=== PATIENT | female | born 1990 | race Hispanic/Latino ===

== ENCOUNTER 2023-08-20 19:06 | Emergency (ER) | payer SELFPAY ==
[2023-08-20 19:09] VITALS: BP 118/86; PULSE 98; RESP 18; TEMP 35.7; O2SAT 100
--- NOTE | 2023-08-20 19:31 | US_ITS ---
STUDY: ABDOMINAL ULTRASOUND - RIGHT UPPER QUADRANT REASON FOR VISIT: Female, 33 years old PAIN TECHNIQUE: Ultrasound evaluation of the right upper quadrant was performed with real-time and static webster-scale imaging. TECHNICAL QUALITY: Limited. Examination limited by bowel gas. COMPARISON: None. FINDINGS: Liver: The liver measures 15.7 cm. There is normal echogenicity of the liver. The bile ducts are within normal limits. There is hepatic color flow. The direction of portal flow is hepatopetal. There is no demonstrated mass lesion. Gallbladder: Normal distended gallbladder. The gallbladder wall measures 1.7 mm. There is a negative sonographic Anguiano''s sign. There is no pericholecystic fluid. There are multiple echogenic structures within the gallbladder, consistent with multiple gallstones. Common Bile Duct (C.B.D.): The common bile duct measures 3.7 mm. Pancreas: Normal size of the head, body with obscuration of the tail of the pancreas. There is normal echogenicity of the visualized pancreas. There is no demonstrated pancreatic mass or cyst in the visualized portion. Right Kidney: Normal size of the right kidney. The right kidney measures 11.5 x 6.0 x 4.9 cm. Normal renal cortex. The right cortex measures 1.0 cm. There is no demonstrated renal mass or cyst. There is no right hydronephrosis. US/Gallbladder IMPRESSION: Multiple gallstones with no signs of acute cholecystitis. Remainder of the right upper quadrant ultrasound unremarkable. Electronically Signed: Cristy Moon MD at 21:09 [facility] ,
[2023-08-20] MEDS: Morphine 4 MG/ML Syringe IV (19:42)
[2023-08-20] MEDS: 0.9% Normal Saline (1000mL) 1,000 ML 125 ML IV (19:42)
[2023-08-20] MEDS: Ondansetron 4 MG/2 ML Vial IV (19:42)
[2023-08-20 19:51] LABS: Absolute Lymphocyte Count 2.19 X10^3/uL (0.83-4.51); Absolute Neutrophil Count 4.7 X10^3/uL (2.0-7.7); Basophil# 0.08 X10^3/uL; Eosinophil# 0.37 X10^3/uL; Eosinophils% 4.7 % (0-5); Hematocrit 37.9 % (37-47); Hemoglobin 12.5 g/dL (12.0-15.0); Lymphocyte # 2.19 X10^3/ul (0.83-4.51); Lymphocyte % 27.8 % (19-41); Mean Corpuscular Hgb 28.3 pg (27.0-32.0); Mean Corpuscular Volume 85.7 fL (81-99); Mean Platelet Vol. 9.9 fl (6.2-12.0); Monocyte# 0.52 X10^3/uL; Monocyte% 6.6 % (0-10); NRBC Flagged by Analyzer 0 % (0-5); Neutrophil % 59.8 % (47-70); Platelet Count 350 K/mm3 (150-450); RBC Distribution Width CV 12.7 % (11.6-14.6); RBC Distribution Width SD 39.8 fl (35.1-43.9); Red Blood Count 4.42 M/mm3 (4.2-5.4); White Blood Count 7.9 K/mm3 (4.4-11.0)
[2023-08-20 20:08] LABS: AST(SGOT) 17 U/L (15-37); Alanine Aminotransfer ALT/SGPT 22 U/L (13-56); Albumin, Serum 3.8 g/dL (3.2-5.0); Alkaline Phosphatase 128 U/L (45-117); Anion Gap 2 (5-15); BUN 11 mg/dL (7-18); BUN/Creat Ratio 20.7 RATIO (10-20); Bilirubin, Direct 0.08 mg/dL (0.00-0.30); Calcium,Total 9.8 mg/dL (8.5-10.1); Chloride 108 mmol/L (98-107); Creatinine, Serum 0.53 mg/dL (0.55-1.02); EST Glomerular Filtration Rate 142 mL/min (>60); Est Glom Filt Rate - Afr Amer 172 mL/min (>60); Glucose 105 mg/dL (74-106); Lipase 37 U/L (13-75); Potassium 3.7 mmol/L (3.5-5.1); Protein, Total 7.8 g/dL (6.4-8.2); Sodium Level 138 mmol/L (136-145)
[2023-08-20 20:21] LABS: Internal QC Validated? YES +Cl - CLEAR BKGD; Pregnancy, Serum, hCG Quali. NEGATIVE Negative
[2023-08-20 20:45] LABS: Bacteria 0 SEEN /hpf (None Seen); Mucous, Urine 0 SEEN /hpf (<or=2+)
[2023-08-20 20:54] LABS: Color, Urine Yellow (Yellow); Glucose, Dipstick Normal (Normal); Ketone-Dipstick Negative (Negative); Leukocyte Esterase-Dipstick Negative /ul (Negative); Nitrite-Dipstick Negative (Negative); Occult Blood-Urine 10 /ul (Negative); Protein-Dipstick Negative (Negative); Urine Bilirubin Dipstick Negative (Negative); Urine Clarity Clear (Clear); Urine Urobilinogen Normal (Normal); Urine pH 6.5 (5.0 - 8.0)
[2023-08-20 21:08] LABS: Red Blood Cells-Urine 0-5 SEEN /hpf (0-5); Squamous Epithelial Cells - UA 0-5 SEEN /hpf (5-10); White Blood Cells 0-5 SEEN /hpf (0-5)
[2023-08-20 21:53] VITALS: BP 139/76; PULSE 82; RESP 15; O2SAT 96
--- NOTE | 2023-08-20 22:26 | ED.VIS.GI ---
HPI HPI - GI History of Present Illness Chief Complaint: Abd Pain Informant: patient Narrative Narrative: 33-year-old female presenting to the emergency room with right upper quadrant abdominal pain. 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 Patient tells me that she has had recurrent right upper quadrant pain. She first had an episode about 2 months ago that resolved. 2 weeks ago she had another episode. Today around 2:00 she ate lunch and around 5:00 began to experiencing pain and nausea. She states the pain does not radiate. It is made worse with movement and deep breathing. She does not feel it in her back. She denies any bowel or urinary symptoms. She notes she has had a clavicle surgery and what sounds like a section. PFSH PFSH Home Medications hydrocodone-acetaminophen 5-325mg 5mg-325mg 1 tab PO Q6H PRN PRN Pain 3 days #12 TABLETS 08/20/23 [Rx Last Taken Unknown] ondansetron 4 mg disintegrating tablet 4 mg PO Q6H PRN PRN Nausea #10 tabs 08/20/23 [Rx Last Taken Unknown] Allergy/AdvReac Type Severity Reaction Status Date / Time No Known Allergies Allergy Verified 08/20/23 19:06 Surgical History Previous section Social History Smoking Status: Never smoker EXAM Physical Exam Const Vital Signs: 08/20/23 19:09 08/20/23 21:53 Temperature 96.2 F L Temperature Source Temporal Pulse Rate 98 82 Respiratory Rate 18 15 Blood Pressure 118/86 H 139/76 H Blood Pressure Mean 96 97 Pulse Ox 100 96 Oxygen Delivery Method Room Air Room Air Positive well nourished and well developed General Appearance ED: well developed HEENT Reports normocephalic, head/scalp atraumatic and moist mucous membranes Eyes PERRL and EOMs intact bilaterally Neck no lymphadenopathy, supple and no JVD Resp normal respiratory effort and clear to auscultation bilaterally Cardio regular rate, regular rhythm and no murmurs GI non-tender Inspection: Negative for abdominal distention Auscultation: normoactive bowel sounds Palpation: soft, tender RUQ and guarding; Negative for rebound tenderness present Back/Spine no CVA tenderness and normal ROM Extremity normal to inspection General Extremety ED: Negative for edema General Extremity: Negative for edema Neuro oriented x3 and CN's II-XII intact bilaterally Sensorium / Orientation: alert Motor Exam: strength 5/5 throughout Psych mental status grossly normal Mood & Affect: Negative for depressed or tearful Skin no rashes or lesions noted and no wounds MDM MDM MDM Narrative Medical decision making narrative: I performed a bedside ultrasound which demonstrates some cholelithiasis. White count 7.9 with no left shift. Liver enzymes showed an alkaline phosphatase of 128 otherwise normal. Creatinine 0.53. Anion gap of 2 CO2 of 28 lipase 37 test is negative urinalysis negative. Formal gallbladder ultrasound shows biliary sludge and gallstones. No pericholecystic fluid. No CBD dilatation. Patient received morphine for pain which improved it. I gave her some additional Toradol. I did speak with Dr. Flanagan from general surgery who at this point would recommend outpatient follow-up to discuss cholecystectomy. She was placed on a low-fat diet given pain and nausea medications and given return instructions in Beninese. History & Record Review Discussion w/independent historian: Patient Lab Data Attestation: I reviewed the patient's lab results. Labs: Laboratory Results - last 24 hr 08/20/23 08/20/23 19:46 20:40 WBC 7.9 RBC 4.42 Hgb 12.5 Hct 37.9 MCV 85.7 MCH 28.3 MCHC 33.0 RDW Std Deviation 39.8 RDW Coeff of Wilfrid 12.7 Plt Count 350 MPV 9.9 Immature Gran % (Auto) 0.100 Neut % (Auto) 59.8 Lymph % (Auto) 27.8 [place] % (Auto) 6.6 Eos % (Auto) 4.7 Baso % (Auto) 1.0 Absolute Neuts (auto) 4.7 Absolute Lymphs (auto) 2.19 Nucleated RBC % 0 Sodium 138 Potassium 3.7 Chloride 108 H Carbon Dioxide 28.0 Anion Gap 2 L BUN 11 Creatinine 0.53 L Est GFR (MDRD) Af Amer 172 Est GFR (MDRD) Non-Af 142 BUN/Creatinine Ratio 20.7 H Glucose 105 Calcium 9.8 Total Bilirubin 0.30 Direct Bilirubin 0.08 AST 17 ALT 22 Alkaline Phosphatase 128 H Total Protein 7.8 Albumin 3.8 Globulin 4.0 Lipase 37 Serum , Qual NEGATIVE Urine Color Yellow Urine Clarity Clear Urine pH 6.5 Ur Specific [place] 1.020 Urine Protein Negative Urine Glucose (UA) Normal Urine Ketones Negative Urine Occult Blood 10 H Urine Nitrite Negative Urine Bilirubin Negative Urine Urobilinogen Normal Ur Leukocyte Esterase Negative Urine RBC 0-5 SEEN Urine WBC 0-5 SEEN Ur Squamous Epith Cells 0-5 SEEN Urine Bacteria 0 SEEN Urine Mucus 0 SEEN Radiography Diagnostic Testing: Clinical Impression(s) from Imaging Studies Gallbladder Ultrasound 08/20/23 19:31 IMPRESSION: Multiple gallstones with no signs of acute cholecystitis. Remainder of the right upper quadrant ultrasound unremarkable. Electronically Signed: Cristy Moon MD at 21:09 EST , Management Discussion w/another healthcare provider: [employer] [employer] (Surgery) Discharge Plan Triage Chief Complaint: Abd Pain ED Provider: Michi Mott Dx/Rx/DC Orders Clinical Impression: Gallstones, Biliary colic Instructions: Gallstones Dc, ED Gallstones with Biliary Colic Prescriptions: New hydrocodone-acetaminophen [hydrocodone-acetaminophen] 5-325 mg tablet 1 tab PO Q6H PRN PRN (Reason: Pain) 3 Days Qty: 12 0RF ondansetron [ondansetron] 4 mg tablet,disintegrating 4 mg PO Q6H PRN PRN (Reason: Nausea) Qty: 10 0RF Primary Care Provider: Care Physician,No Primary Referrals: Fred Flanagan MD [Med Staff - Active Staff] - As soon as possible (for surgical evaluation) Care Physician,No Primary [Primary Care Provider] - Activity Restrictions/Additional Instructions: As discussed it is very likely that your pain will be coming back at some point. It is very important that you follow-up with surgery to discuss having your gallbladder removed. I have wrote for you to have some pain and nausea medications. If you are having uncontrolled symptoms at home please return to emergency. Print Language: Beninese Disposition Disposition: Home, Self Care
[2023-08-20] MEDS: Ketorolac 30 MG/ML Syringe IV (22:35)
[2023-08-20 22:37] VITALS: BP 128/67; PULSE 85; RESP 17; O2SAT 99
[2023-08-20 22:39] VITALS: BMI 26.4
== END 2023-08-20 23:00 | disposition home or self-care (01) ==
PROVIDERS: Emergency Provider Emergency Medicine; Visit Provider Emergency Medicine
DX: K80.70 Calculus of gallbladder and bile duct without cholecystitis without obstruction (principal)
CPT/HCPCS: 76705; 80048; 80076; 81001; 83690; 84703; 85025; 96361; 96374; 96375; 99283; J7030; A4216; J2405

== ENCOUNTER 2025-01-31 03:41 | Emergency (ER) | payer SELFPAY ==
[2025-01-31 03:43] VITALS: BP 126/74; PULSE 94; RESP 18; TEMP 36.9; O2SAT 98; BMI 25.9
[2025-01-31 04:08] LABS: Hematocrit 38.7 % (37-47); Hemoglobin 13.1 g/dL (12.0-15.0); Immature Granulocytes Count 0.040 X10^3/uL (0.0-0.0); Mean Corp Hgb Conc 33.9 g/dL (32-36); Mean Corpuscular Volume 83.6 fL (81-99); Mean Platelet Vol. 9.5 fl (6.2-12.0); NRBC Flagged by Analyzer 0 % (0-5); Platelet Count 341 K/mm3 (150-450); RBC Distribution Width CV 13.0 % (11.6-14.6); RBC Distribution Width SD 39.6 fl (35.1-43.9); Red Blood Count 4.63 M/mm3 (4.2-5.4); White Blood Count 11.4 K/mm3 (4.4-11.0)
[2025-01-31] MEDS: 0.9% Normal Saline (1000mL) 1,000 ML 999 ML IV (04:15)
[2025-01-31 04:17] LABS: Internal QC Validated? YES +Cl - CLEAR BKGD; Pregnancy, Serum, hCG Quali. NEGATIVE Negative; Record Kit Lot#, Serum Preg. 0000947241
[2025-01-31 04:25] LABS: AST(SGOT) 23 U/L (<=31); Alanine Aminotransfer ALT/SGPT 16 U/L (<=34); Albumin, Serum 4.6 g/dL (3.5-5.0); Alkaline Phosphatase 97 U/L (35-104); Anion Gap 12 (5-15); BUN 7 mg/dL (4-19); BUN/Creat Ratio 13.3 RATIO (10-20); Bilirubin, Direct 0.28 mg/dL (0.00-0.30); Calcium,Total 9.4 mg/dL (7.6-11.0); Carbon Dioxide 19.9 mmol/L (21.0-32.0); Chloride 102 mmol/L (98-108); Estimated Creatinine Clearance 151.54 ml/min (50-250); Globulin 3.6 g/dL (2.2-4.2); Glucose 110 mg/dL (70-99); Lipase 25 U/L (13-75); Potassium 4.1 mmol/L (3.3-5.1)
[2025-01-31 04:26] LABS: Color, Urine Yellow (Yellow); Glucose, Dipstick Normal (Normal); Ketone-Dipstick Negative (Negative); Leukocyte Esterase-Dipstick 25 /ul (Negative); Nitrite-Dipstick Negative (Negative); Occult Blood-Urine 25 /ul (Negative); Protein-Dipstick 30 mg/dl (Negative); Specific Gravity, Urine 1.015 (1.002-1.030); Urine Bilirubin Dipstick Negative (Negative)
--- NOTE | 2025-01-31 04:29 | CT_ITS ---
PROCEDURE: ABDOMEN/PELVIS W IV CONT ONLY 01/31/2025 REASON FOR EXAM: ABD PAIN TECHNIQUE: ABDOMEN/PELVIS W IV CONT ONLY Coronal and Sagittal reconstruction series were provided. CONTRAST: VOLUME: mL One or more dose reduction techniques were used (e.g., Automated exposure control, adjustment of the mA and/or kV according to patient size, use of iterative reconstruction technique. RADIATION DOSE SUMMARY: CTDlvol: mGy DLP: mGycm COMPARISON: none FINDINGS: Average sized liver showing homogenous parenchymal attenuation with fatty changes and segment IV pseudo-lesion. No dilated intra or extra-hepatic biliary tracts. Cholecystectomy clips Normal appearance of the pancreas with clear surrounding fat planes. The spleen, adrenal glands, aorta and IVC are unremarkable. Both kidneys are of average size and showing smooth outline with preserved parenchymal thickness. No renal calculi. No hydronephrosis. Under distension of the urinary bladder showing uniform mural thickening with no obvious masses. No obvious masses related to the pelvic viscera. The appendix is not identified. Colonic fecal loading. The small bowel loops are unremarkable. Unremarkable appendix. Mild gastric wall thickening, possibly under distension. No ascites or free air. No obvious pathologically enlarged lymph nodes. Scanned osseous structures show no osseous destruction. Scanned lung bases show no obvious abnormalities. CT/Abdomen/Pelvis W IV Cont ONLY IMPRESSION: Urinary bladder mural thickening. Advise clinical and laboratory correlation to exclude the possibility of cystitis. Otherwise, no acute pelvi-abdominal abnormalities, collections or free air. Reading [facility]
[2025-01-31 04:33] LABS: Red Blood Cells-Urine 0-5 SEEN /hpf (0-5); Squamous Epithelial Cells - UA 5-10 SEEN /hpf (5-10); Transitional Epithelial - Ur 0-5 SEEN /hpf (0-5)
[2025-01-31 04:34] LABS: Mucous, Urine 1+ /hpf (<or=2+)
--- OUTSIDE RECORDS SUMMARY | 2025-01-31 05:14 | XMS RPT_ITS | CCD ---
Author Organization [facility] Care Team Providers Care Precision Agriculture Technician Name Role Phone Michi Mott Attending [facility] Care Physician, No Primary Primary Care Unava ilable Medications Current Medications Medication Drug Class(es) Dates Sig (Normalized) Sig (Original) acetaminophen 325 mg / HYDROcodone bitartrate 5 mg oral tablet (1 source) Opioid Agonist Start: 08-20-2023 take 1 tablet by mouth every six hours as needed Hydrocodone-Aceta minophen Active 1 TABLET PO EVERY 6 HOURS NEEDED 12 August 20, 2023 ondansetron 4 mg disintegrating oral tablet (1 source) Serotonin-3 Receptor Antagonist Start: 08-20-2023 take 4 mg by mouth every six hours as needed Ondansetron Active 4 MG PO EVERY 6 HOURS NEEDED August 20, 2023 10:24pm Problems Problem Classification Problem Date Documented Date Episodic/Chronic Abdominal pain (1 source) Right upper quadrant pain; Translations: [Right upper quadrant pain] Onset: 08-25-2023 Episodic Biliary tract disease (2 sources) Gallstone; Translations: [Calculus of gallbladder without cholecystitis without obstruction] 08-20-2023 Episodic Results Test Name Value Interpretation Reference Range Facility Emergency Department Summary on 08-21-2023 Emergency Department Summary [facility] Medical Records Department [address] [place] [address] Emergency Department Summary 08/20/23 MR#: [id number] Acct: [id number] Name: STIVEN HORNE Rep #: [id number] : 1990 33 From: Michi Mott DO PCP: Care Physician,No Primary Status:REG ER Location: ED HPI HPI - GI History of Present Illness Chief Complaint: Abd Pain Informant: patient Narrative Narrative: 33-year-old female presenting to the emergency room with right upper quadrant abdominal pain. The patient's ED visit is assisted with erco machine operator via iPad. Patient tells me that she has had recurrent right upper quadrant pain. She first had an episode about 2 months ago that resolved. 2 weeks ago she had another episode. Today around 2:00 she ate lunch and around 5:00 began to experiencing pain and nausea. She states the pain does not radiate. It is made worse with movement and deep breathing. She does not feel it in her back. She denies any bowel or urinary symptoms. She notes she has had a clavicle surgery and what sounds like a section. PFSH PFSH Home Medications hydrocodone-acetami nophen 5-325mg 5mg-325mg 1 tab PO Q6H PRN PRN Pain 3 days #12 TABLETS 08/20/23 [Rx Last Taken Unknown] ondansetron 4 mg disintegrating tablet 4 mg PO Q6H PRN PRN Nausea #10 tabs 08/20/23 [Rx Last Taken Unknown] Allergy/AdvReac Type Severity Reaction Status Date / Time No Known Allergies Allergy Verified 08/20/23 19:06 Surgical History Previous section Social History Smoking Status: Never smoker EXAM Physical Exam Const Vital Signs: 08/20/23 19:09 08/20/23 21:53 Temperature 96.2 F L Temperature Source Temporal Pulse Rate 98 82 Respiratory Rate 18 15 Blood Pressure 118/86 H 139/76 H Blood Pressure Mean 96 97 Pulse Ox 100 96 Oxygen Delivery Method Room Air Room Air Positive well nourished and well developed General Appearance ED: well developed HEENT Reports normocephalic, head/scalp atraumatic and moist mucous membranes Eyes PERRL and EOMs intact bilaterally Neck no lymphadenopathy, supple and no JVD Resp normal respiratory effort and clear to auscultation bilaterally Cardio regular rate, regular rhythm and no murmurs GI non-tender Inspection: Negative for abdominal distention Auscultation: normoactive bowel sounds Palpation: soft, tender RUQ and guarding; Negative for rebound tenderness present Back/Spine no CVA tenderness and normal ROM Extremity normal to inspection General Extremety ED: Negative for edema General Extremity: Negative for edema Neuro oriented x3 and CN's II-XII intact bilaterally Sensorium / Orientation: alert Motor Exam: strength 5/5 throughout Psych mental status grossly normal Mood Affect: Negative for depressed or tearful Skin no rashes or lesions noted and no wounds MDM MDM MDM Narrative Medical decision making narrative: I performed a bedside ultrasound which demonstrates some cholelithiasis. White count 7.9 with no left shift. Liver enzymes showed an alkaline phosphatase of 128 otherwise normal. Creatinine 0.53. Anion gap of 2 CO2 of 28 lipase 37 test is negative urinalysis negative. Formal gallbladder ultrasound shows biliary sludge and gallstones. No pericholecystic fluid. No CBD dilatation. Patient received morphine for pain which improved it. I gave her some additional Toradol. I did speak with Dr. Flanagan from general surgery who at this point would recommend outpatient follow-up to discuss cholecystectomy. She was placed on a low-fat diet given pain and nausea medications and given return instructions in [place]err[place]. History Record Review Discussion w/independent historian: Patient Lab Data Attestation: I reviewed the patient's lab results. Labs: Laboratory Results - last 24 hr 08/20/23 08/20/23 19:46 20:40 WBC 7.9 RBC 4.42 Hgb 12.5 Hct 37.9 MCV 85.7 MCH 28.3 MCHC 33.0 RDW Std Deviation 39.8 RDW Coeff of Wilfrid 12.7 Plt Count 350 MPV 9.9 Immature Gran % (Auto) 0.100 Neut % (Auto) 59.8 Lymph % (Auto) 27.8 [place] % (Auto) 6.6 Eos % (Auto) 4.7 Baso % (Auto) 1.0 Absolute Neuts (auto) 4.7 Absolute Lymphs (auto) 2.19 Nucleated RBC % 0 Sodium 138 Potassium 3.7 Chloride 108 H Carbon Dioxide 28.0 Anion Gap 2 L BUN 11 Creatinine 0.53 L Est GFR (MDRD) Af Amer 172 Est GFR (MDRD) Non-Af 142 BUN/Creatinine Ratio 20.7 H Glucose 105 Calcium 9.8 Total Bilirubin 0.30 Direct Bilirubin 0.08 AST 17 ALT 22 Alkaline Phosphatase 128 H Total Protein 7.8 Albumin 3.8 Globulin 4.0 Lipase 37 Serum [place] (more content not included)... Normal [facility] Absolute lymphocyte countOrd ered By: Michi Mott on 08-20-2023 Lymphocytes Auto (Unsp spec) [#/Vol] 2.19 10*3/uL 0.83-4.51 [facility] Automated lymphocyte count a s percentage of total leukocytesOrdered By: Michi [place] on 08-20-2023 Lymphocytes/100 WBC Auto (Unsp spec) 27.8 % 19-41 [facility] Basic Metabolic Profile (BMP )on 08-20-2023 BUN/CRE 20.7 RATIO High 10-20 [facility] Comment on above: Performed By: #### L 500.3400, L500.2500, L700.6800, L501.2450, L100.0100 #### [facility] [address] [place], [address] CA,Total 9.8 mg/dL Normal 8.5-10.1 [facility] Comment on above: Performed By: #### L 500.3400, L500.2500, L700.6800, L501.2450, L100.0100 #### [facility] [address] [place], [address] Chloride [Moles/Vol] 108 mmol/L High 98-107 [facility] Comment on above: Performed By: #### L 500.3400, L500.2500, L700.6800, L501.2450, L100.0100 #### [facility] [address] [place], [address] CO2 [Moles/Vol] 28.0 mmol/L Normal 21.0-32.0 [facility] Comment on above: Performed By: #### L 500.3400, L500.2500, L700.6800, L501.2450, L100.0100 #### [facility] [address] [place], [address] Creatinine [Mass/Vol] 0.53 mg/dL Low 0.55-1.02 [facility] Comment on above: Result Comment: The validity of the calculated GFR GFRAA in patients over 70 years has not been determined. Clinical correlation is essential. Performed By: #### L 500.3400, L500.2500, L700.6800, L501.2450, L100.0100 #### [facility] [address] [place], [address] EST GFR - AA 172 mL/min Normal >60 [facility] Comment on above: Result Comment: Afri can Tristanian GFR Calc Performed By: #### L 500.3400, L500.2500, L700.6800, L501.2450, L100.0100 #### [facility] [address] [place], [address] GAP 2 Low 5-15 [facility] Comment on above: Performed By: #### L 500.3400, L500.2500, L700.6800, L501.2450, L100.0100 #### [facility] [address] [place], [address] GFR/1.73 sq M.predicted among non-blacks MDRD (S/P/Bld) [Vol rate/Area] 142 mL/min/{1.73_m2} Normal >60 [facility] Comment on above: Result Comment: Non- GFR Calc Performed By: #### L 500.3400, L500.2500, L700.6800, L501.2450, L100.0100 #### [facility] [address] [place], [address] Glucose [Mass/Vol] 105 mg/dL Normal 74-106 [facility] Comment on above: Result Comment: Fast ing Glucose result from 100 to 125 mg/dL suggests IMPAIRED HOMEOSTASIS per A.D.A. criteria. Performed By: #### L 500.3400, L500.2500, L700.6800, L501.2450, L100.0100 #### [facility] [address] [place], [address] Potassium [Moles/Vol] 3.7 mmol/L Normal 3.5-5.1 [facility] Comment on above: Performed By: #### L 500.3400, L500.2500, L700.6800, L501.2450, L100.0100 #### [facility] [address] [place], [address] Sodium [Moles/Vol] 138 mmol/L Normal 136-145 [facility] Comment on above: Performed By: #### L 500.3400, L500.2500, L700.6800, L501.2450, L100.0100 #### [facility] [address] [place], [address] Urea nitrogen [Mass/Vol] 11 mg/dL Normal 7-18 [facility] Comment on above: Performed By: #### L 500.3400, L500.2500, L700.6800, L501.2450, L100.0100 #### [facility] [address] [place], [address] Basophil percentageOrdered B y: Michi Mott on 08-20-2023 Basophil percentage 0-5 SEEN /hpf 0-5 [facility] Basophils/100 WBC (Bld) 1.0 % 0-1 [facility] Bilirubin [Mass/Vol] 0.30 mg/dL 0.20-1.00 [facility] Comment on above: For patients on eltr ombopag therapy, use of Dimension [place] TBIL is not recommended. Chloride [Moles/Vol] 108 mmol/L 98-107 [facility] Eosinophils/100 WBC (Bld) 4.7 % 0-5 [facility] Glucose [Mass/Vol] 105 mg/dL 74-106 [facility] Comment on above: Fasting Glucose resu lt from 100 to 125 mg/dL suggests IMPAIRED HOMEOSTASIS per A.D.A. criteria. Hemoglobin (Bld) [Mass/Vol] 12.5 g/dL 12.0-15.0 [facility] Monocytes/100 WBC (Bld) 6.6 % 0-10 [facility] Neutrophils (Bld) [#/Vol] 4.7 10*3/uL 2.0-7.7 [facility] Neutrophils/100 WBC (Bld) 59.8 % 47-70 [facility] Potassium [Moles/Vol] 3.7 mmol/L 3.5-5.1 [facility] Protein [Mass/Vol] 7.8 g/dL 6.4-8.2 [facility] Sodium [Moles/Vol] 138 mmol/L 136-145 [facility] WBC (Bld) [#/Vol] 7.9 10*3/uL 4.4-11.0 [facility] Bilirubin Test strip Ql (U)O rdered By: Michi Mott on 08-20-2023 Bilirubin Ql (U) Negative Negative [facility] CBC W/Diff, Automatedon 07-26 Absolute Lymph 2.19 X10 3/uL Normal 0.83-4.51 [facility] Comment on above: Performed By: #### L 500.3400, L500.2500, L700.6800, L501.2450, L100.0100 #### [facility] [address] [place], [address] Absolute Neut 4.7 X10 3/uL Normal 2.0-7.7 [facility] Comment on above: Performed By: #### L 500.3400, L500.2500, L700.6800, L501.2450, L100.0100 #### [facility] [address] [place], [address] Basophils/100 WBC (Bld) 1.0 % Normal 0-1 [facility] Comment on above: Performed By: #### L 500.3400, L500.2500, L700.6800, L501.2450, L100.0100 #### [facility] [address] [place], [address] Eosinophils/100 WBC (Bld) 4.7 % Normal 0-5 [facility] Comment on above: Performed By: #### L 500.3400, L500.2500, L700.6800, L501.2450, L100.0100 #### [facility] [address] [place], [address] Erythrocyte distribution width (RBC) [Ratio] 12.7 % Normal 11.6-14.6 [facility] Comment on above: Performed By: #### L 500.3400, L500.2500, L700.6800, L501.2450, L100.0100 #### [facility] [address] [place], [address] Hematocrit (Bld) [Volume fraction] 37.9 % Normal 37-47 [facility] Comment on above: Performed By: #### L 500.3400, L500.2500, L700.6800, L501.2450, L100.0100 #### [facility] [address] [place], [address] Hemoglobin (Bld) [Mass/Vol] 12.5 g/dL Normal 12.0-15.0 [facility] Comment on above: Performed By: #### L 500.3400, L500.2500, L700.6800, L501.2450, L100.0100 #### [facility] [address] [place], [address] IG% 0.100 Normal 0.0-0.9 [facility] Comment on above: Result Comment: IG% - Immature Granulocytes (promyelocytes, myelocytes and metamyelocytes) > 1% indicates that a LEFT SHIFT is Present. Performed By: #### L 500.3400, L500.2500, L700.6800, L501.2450, L100.0100 #### [facility] [address] [place], [address] Lymphocytes/100 WBC (Bld) 27.8 % Normal 19-41 [facility] Comment on above: Performed By: #### L 500.3400, L500.2500, L700.6800, L501.2450, L100.0100 #### [facility] [address] [place], [address] MCH (RBC) [Entitic mass] 28.3 pg Normal 27.0-32.0 [facility] Comment on above: Performed By: #### L 500.3400, L500.2500, L700.6800, L501.2450, L100.0100 #### [facility] [address] [place], [address] MCHC (RBC) [Mass/Vol] 33.0 g/dL Normal 32-36 [facility] Comment on above: Performed By: #### L 500.3400, L500.2500, L700.6800, L501.2450, L100.0100 #### [facility] [address] [place], [address] MCV (RBC) [Entitic vol] 85.7 fL Normal 81-99 [facility] Comment on above: Performed By: #### L 500.3400, L500.2500, L700.6800, L501.2450, L100.0100 #### [facility] [address] [place], [address] Monocytes/100 WBC (Bld) 6.6 % Normal 0-10 [facility] Comment on above: Performed By: #### L 500.3400, L500.2500, L700.6800, L501.2450, L100.0100 #### [facility] [address] [place], [address] Neutrophils/100 WBC (Bld) 59.8 % Normal 47-70 [facility] Comment on above: Performed By: #### L 500.3400, L500.2500, L700.6800, L501.2450, L100.0100 #### [facility] [address] [place], [address] Nucleated RBC (Bld) [#/Vol] 0 10*3/uL Normal 0-5 [facility] Comment on above: Performed By: #### L 500.3400, L500.2500, L700.6800, L501.2450, L100.0100 #### [facility] [address] [place], [address] Platelet mean volume (Bld) [Entitic vol] 9.9 fL Normal 6.2-12.0 [facility] Comment on above: Performed By: #### L 500.3400, L500.2500, L700.6800, L501.2450, L100.0100 #### [facility] [address] [place], [address] Platelets (Bld) [#/Vol] 350 10*3/uL Normal 150-450 [facility] Comment on above: Performed By: #### L 500.3400, L500.2500, L700.6800, L501.2450, L100.0100 #### [facility] [address] [place], [address] RBC (Bld) [#/Vol] 4.42 10*6/uL Normal 4.2-5.4 [facility] Comment on above: Performed By: #### L 500.3400, L500.2500, L700.6800, L501.2450, L100.0100 #### [facility] [address] [place], [address] RDW SD 39.8 fl Normal 35.1-43.9 [facility] Comment on above: Performed By: #### L 500.3400, L500.2500, L700.6800, L501.2450, L100.0100 #### [facility] [address] [place], [address] WBC (Bld) [#/Vol] 7.9 10*3/uL Normal 4.4-11.0 [facility] Comment on above: Performed By: #### L 500.3400, L500.2500, L700.6800, L501.2450, L100.0100 #### [facility] [address] [place], [address] Determination of erythrocyte mean corpuscular volume (MCV)Ordered By: Michi Mott on 08-20-2023 MCV (RBC) [Entitic vol] 85.7 fL 81-99 [facility] Direct bilirubinOrdered By: Michi Mott on 08-20-2023 Bilirubin.direct [Mass/Vol] 0.08 mg/dL 0.00-0.30 [facility] Erythrocyte distribution wid th ratioOrdered By: Michi Mott on 08-20-2023 Erythrocyte distribution width (RBC) [Ratio] 12.7 % 11.6-14.6 [facility] Erythrocyte distribution wid th standard deviationOrdered By: Michi Mott on 08-20-2023 Erythrocyte distribution width (RBC) [Entitic vol] 39.8 fL 35.1-43.9 [facility] Gallbladderon 08-20-2023 Gallbladder [facility] Imaging Services [address] [place] [address] Gallbladder MR#: [id number] Acct: [id number] Name: STIVEN HORNE Rep #: [id number] : 1990 F 33 From: Cristy Moon MD PCP: Care Physician,No Primary Status: REG ER Study: Gallbladder Date of Exam: 08/20/23 Exam# [id number] Ordering Dr: Michi Mott DO -[id number] STUDY: ABDOMINAL ULTRASOUND - RIGHT UPPER QUADRANT REASON FOR VISIT: Female, 33 years old PAIN TECHNIQUE: Ultrasound evaluation of the right upper quadrant was performed with real-time and static webster-scale imaging. TECHNICAL QUALITY: Limited. Examination limited by bowel gas. COMPARISON: None. FINDINGS: Liver: The liver measures 15.7 cm. There is normal echogenicity of the liver. The bile ducts are within normal limits. There is hepatic color flow. The direction of portal flow is hepatopetal. There is no demonstrated mass lesion. Gallbladder: Normal distended gallbladder. The gallbladder wall measures 1.7 mm. There is a negative sonographic Anguiano''s sign. There is no pericholecystic fluid. There are multiple echogenic structures within the gallbladder, consistent with multiple gallstones. Common Bile Duct (C.B.D.): The common bile duct measures 3.7 mm. Pancreas: Normal size of the head, body with obscuration of the tail of the pancreas. There is normal echogenicity of the visualized pancreas. There is no demonstrated pancreatic mass or cyst in the visualized portion. Right Kidney: Normal size of the right kidney. The right kidney measures 11.5 x 6.0 x 4.9 cm. Normal renal cortex. The right cortex measures 1.0 cm. There is no demonstrated renal mass or cyst. There is no right hydronephrosis. US/Gallbladder IMPRESSION: Multiple gallstones with no signs of acute cholecystitis. Remainder of the right upper quadrant ultrasound unremarkable. Electronically Signed: Cristy Moon MD at 21:09 [facility] , CC: Dr. Michi Mott DO; No Primary Care Physician Security Assurance Analyst: Signed Normal [facility] Hematocrit Auto (Bld) [Volum e fraction]Ordered By: Michi Mott on 08-20-2023 Hematocrit (Bld) [Volume fraction] 37.9 % 37-47 [facility] Immature granulocytes/100 WB C Auto (Bld)Ordered By: Michi Mott on 08-20-2023 Immature granulocytes/100 WBC (Bld) 0.100 % 0.0-0.9 [facility] Comment on above: IG% - Immature Granu locytes (promyelocytes, myelocytes and metamyelocytes) > 1% indicates that a LEFT SHIFT is Present. Ketones Test strip Ql (U)Ord ered By: Michi Mott on 08-20-2023 Ketones Ql (U) Negative Negative [facility] Laboratory - Chemistry and C hemistry - challengeOrdered By: Michi Mott on 08-20-2023 ALP [Catalytic activity/Vol] 128 U/L 45-117 [facility] ALT [Catalytic activity/Vol] 22 U/L 13-56 [facility] CO2 [Moles/Vol] 28.0 mmol/L 21.0-32.0 [facility] Globulin (S) [Mass/Vol] 4.0 g/dL 2.2-4.2 [facility] Lipase [Catalytic activity/Vol] 37 U/L [facility] Comment on above: Please note:LIPASE r evised reference range effective 22. New Lipase methodology. Expected to produce lower values than the previous assay method. NEW Reference Range: 13 - 75 U/L Urea nitrogen/Creatinine [Mass ratio] 20.7 mg/mg 10-20 [facility] - Hematology and Cell countsOrdered By: Michi Mott on 08-20-2023 MCH (RBC) [Entitic mass] 28.3 pg 27.0-32.0 [facility] MCHC (RBC) [Mass/Vol] 33.0 g/dL 32-36 [facility] Nucleated RBC/100 WBC (Bld) [Ratio] 0 % 0-5 [facility] Platelets (Bld) [#/Vol] 350 10*3/uL 150-450 [facility] Lipaseon 08-20-2023 Lipase [Catalytic activity/Vol] 37 U/L Normal - [facility] Comment on above: Result Comment: Plea se note: LIPASE revised reference range effective 22. New Lipase methodology. Expected to produce lower values than the previous assay method. NEW Reference Range: 13 - 75 U/L Performed By: #### L 500.3400, L500.2500, L700.6800, L501.2450, L100.0100 #### [facility] [address] [place], [address] Liver Profileon 08-20-2023 Albumin [Mass/Vol] 3.8 g/dL Normal 3.2-5.0 [facility] Comment on above: Performed By: #### L 500.3400, L500.2500, L700.6800, L501.2450, L100.0100 #### [facility] [address] [place], [address] ALK P 128 U/L High 45-117 [facility] Comment on above: Performed By: #### L 500.3400, L500.2500, L700.6800, L501.2450, L100.0100 #### [facility] [address] [place], [address] ALT [Catalytic activity/Vol] 22 U/L Normal 13-56 [facility] Comment on above: Performed By: #### L 500.3400, L500.2500, L700.6800, L501.2450, L100.0100 #### [facility] [address] [place], [address] AST [Catalytic activity/Vol] 17 U/L Normal 15-37 [facility] Comment on above: Performed By: #### L 500.3400, L500.2500, L700.6800, L501.2450, L100.0100 #### [facility] [address] [place], [address] Bilirubin [Mass/Vol] 0.30 mg/dL Normal 0.20-1.00 [facility] Comment on above: Result Comment: For patients on eltrombopag therapy, use of Dimension [place] TBIL is not recommended. Performed By: #### L 500.3400, L500.2500, L700.6800, L501.2450, L100.0100 #### [facility] [address] [place], [place], [id number] Bilirubin.direct [Mass/Vol] 0.08 mg/dL Normal 0.00-0.30 [facility] Comment on above: Performed By: #### L 500.3400, L500.2500, L700.6800, L501.2450, L100.0100 #### [facility] [address] [place], [address] Globulin (S) [Mass/Vol] 4.0 g/dL Normal 2.2-4.2 [facility] Comment on above: Performed By: #### L 500.3400, L500.2500, L700.6800, L501.2450, L100.0100 #### [facility] [address] [place], [address] T PROT 7.8 g/dL Normal 6.4-8.2 [facility] Comment on above: Performed By: #### L 500.3400, L500.2500, L700.6800, L501.2450, L100.0100 #### [facility] [address] [place], [address] Mucus LM Ql (Urine sed)Order ed By: Michi Mott on 08-20-2023 Mucus Ql (Urine sed) 0 SEEN /hpf [facility] Nitrite Test strip Ql (U)Ord ered By: Michi Mott on 08-20-2023 Nitrite Ql (U) Negative Negative [facility] No Panel InformationOrdered By: Michi Mott on 08-20-2023 Urine RBC 0-5 SEEN /hpf 0-5 [facility] Estimated GFR (MDRD) Amer 172 mL/min >60 [facility] Comment on above: GFR Calc Estimated GFR (MDRD) Non-Af Amer 142 mL/min >60 [facility] Comment on above: Non- GFR Calc Platelet mean volume Pancho-Ec ker (Bld) [Entitic vol]Ordered By: Michi Mott on 08-20-2023 Platelet mean volume (Bld) [Entitic vol] 9.9 fL 6.2-12.0 [facility] ,Serum,hCG Quali.on 08-20-2023 HCG, SERUM QUAL Negative Normal [facility] Comment on above: Performed By: #### L 500.3400, L500.2500, L700.6800, L501.2450, L100.0100 #### [facility] [address] [place], [address] Protein Test strip Ql (U)Ord ered By: Michi Mott on 08-20-2023 Protein Ql (U) Negative Negative [facility] RBC Auto (Bld) [#/Vol]Ordere d By: Michi Mott on 08-20-2023 RBC (Bld) [#/Vol] 4.42 10*6/uL 4.2-5.4 [facility] Serum or plasma calcium teressa urement (mass/volume)Ordered By: Michi Mott on 08-20-2023 Calcium [Mass/Vol] 9.8 mg/dL 8.5-10.1 [facility] Serum or plasma choriogonado tropin detectionOrdered By: Michi Mott on 08-20-2023 HCG ( test) Ql Negative [facility] Serum or plasma creatinine m easurement (mass/volume)Ordered By: Michi Mott on 08-20-2023 Creatinine [Mass/Vol] 0.53 mg/dL 0.55-1.02 [facility] Comment on above: The validity of the calculated GFR & GFRAA in patients over 70 years has not been determined. Clinical correlation is essential. Serum or plasma urea nitroge n measurement (mass/volume)Ordered By: Michi Mott on 08-20-2023 Urea nitrogen [Mass/Vol] 11 mg/dL 7-18 [facility] Squamous epithelial cells de tection in urine sediment by light microscopyOrdered By: Michi Mott on 08-20-2023 Epithelial cells.squamous LM Ql (Urine sed) 0-5 SEEN /hpf 5-10 [facility] Thin prep Papanicolaou smear with manual screeningOrdered By: Michi Mott on 08-20-2023 Thin prep Papanicolaou smear with manual screening 3.8 g/dL 3.2-5.0 [facility] Thin prep Papanicolaou smear with manual screening 17 U/L 15-37 [facility] Thin prep Papanicolaou smear with manual screening 2 5-15 [facility] Urinalysis, Completeon 08-20 EPI,SQUAMOUS 0-5 SEEN Normal 5-10 [facility] Comment on above: Order Comment: CLEAN CATCH Performed By: #### L 400.0001 #### [facility] [address] [place], [address] RBC 0-5 SEEN Normal 0-5 [facility] Comment on above: Order Comment: CLEAN CATCH Performed By: #### L [id number] #### [facility] [address] [place], [address] WBC 0-5 SEEN Normal 0-5 [facility] Comment on above: Order Comment: CLEAN CATCH Performed By: #### L [id number] #### [facility] [address] [place], [address] BACTERIA 0 SEEN Normal None Seen [facility] Comment on above: Order Comment: CLEAN CATCH Performed By: #### L [id number] #### [facility] [address] [place], [address] Mucus Ql (Urine sed) 0 SEEN Normal [facility] Comment on above: Order Comment: CLEAN CATCH Performed By: #### L [id number] #### [facility] [address] [place], [address] Urine blood detectionOrdered By: Michi Mott on 08-20-2023 RBC Ql (U) 10 /ul Negative [facility] Urine clarityOrdered By: Luis Mott on 08-20-2023 Clarity (U) Clear Clear [facility] Urine color determinationOrd ered By: Michi Mott on 08-20-2023 Color (U) Yellow Yellow [facility] Urine glucose detectionOrder ed By: Michi Mott on 08-20-2023 Glucose Ql (U) Normal mg/dl Normal [facility] Urine leukocyte esterase det ection by dipstickOrdered By: Michi Mott on 08-20-2023 Leukocyte esterase Test strip Ql (U) Negative Negative [facility] Urine pHOrdered By: Michi joseph on 08-20-2023 pH (U) 6.5 [pH] 5.0 - 8.0 [facility] Urine sediment bacteria coun t by microscopy (number/high power field)Ordered By: Michi Mott on 08-20-2023 Bacteria LM.HPF (Urine sed) [#/Area] 0 /[HPF] None Seen [facility] Urine specific gravity measu rementOrdered By: Michi Mott on 08-20-2023 Specific gravity (U) [Rel density] 1.020 1.002-1.030 [facility] Urine urobilinogen measureme ntOrdered By: Michi Mott on 08-20-2023 Urobilinogen Ql (U) Normal mg/dl Normal [facility] Vital Signs Date Time Vital Sign Value Performing Clinician Faci lity 08-20-2023 22:39-0500 Body mass index (BMI) [Ratio] 26.4 kg/m2 [facility] 08-20-2023 22:39-0500 Body weight 74.3 kg [facility] 08-20-2023 22:37-0500 Diastolic blood pressure 67 mm[Hg] [facility] 08-20-2023 22:37-0500 Heart rate 85 /min [facility] 08-20-2023 22:37-0500 Respiratory rate 17 /min [facility] 08-20-2023 22:37-0500 SaO2% (BldA) [Mass fraction] 99 % [facility] 08-20-2023 22:37-0500 Systolic blood pressure 128 mm[Hg] [facility] 08-20-2023 19:09-0500 Body height 167.64 cm [facility] 08-20-2023 19:09-0500 Body temperature 96.2 [degF] [facility] Encounters Encounter Date Encounter Type Care Provider Facility Start: 08-20-2023 End: 08-21-2023 Emergency department patient visit Michi Mott Facility:[facility] Start: 08-20-2023 End: 08-20-2023 Emergency department patient visit [facility] Work Phone: Procedures Date Procedure Procedure Detail Performing Clinician Start: 08-20-2023 US scan of gallbladder Plan of Treatment Date Care Activity Detail Author Start: 08-20-2023 [facility] Patient Education Gallstones Dc ED Gallstones with Biliary Colic [facility] Work Phone: Patient referral [facility] Work Phone: Payers Date Payer Category Payer Self-pay Unknown [id number] Social History Date Type Detail Facility Start: 08-20-2023 Tobacco smoking stat [facility] Unknown if ever smoked [facility] Start: 1990 Sex Assigned At Female [facility] Discharge summary 08-20-2023 Note Date & Type Note Facility 08-20-2023 Discharge summary Note Date/Time August 20, 2023 10:31pm [facility] System Medical Records Department [address] [place] [address] Emergency Department Summary 08/20/23 MR#: [id number] Acct: [id number] Name: STIVEN HORNE Rep #:[id number] : 1990 33 From: Michi Lee PCP: Care Physician,No Primary Status :REG ER Location: ED HPI HPI - GI History of Present Illness Chief Complaint: Abd Pain Informant: patient Narrative Narrative: 33-year-old female presenting to the emergency room with right upper quadrant abdominal pain. The patient's ED visit is assisted with erco machine operator via iPad. Patient tells me that she has had recurrent right upper quadrant pain. She first had an episode about 2 months ago that resolved. 2 weeks ago she had another episode. Today around 2:00 she ate lunch and around 5:00 began to experiencing pain and nausea. She states the pain does not radiate. It is madeworse with movement and deep breathing. She does not feel it in her back. She denies any bowel or urinary symptoms. She notes she has had a clavicle surgery and what sounds like a section. PFSH PFSH Home Medications hydrocodone-acetaminophen 5-325mg 5mg-325mg 1 tab PO Q6H PRN PRN Pain 3 days #12TABLETS 08/20/23 [Rx Last Taken Unknown] ondansetron 4 mg disintegrating tablet 4 mg PO Q6H PRN PRN Nausea #10 tabs 08/20/23 [Rx Last Taken Unknown] Allergy/AdvReac Type Severity Reaction Status Date / Time No Known Allergies Allergy Verified 08/20/23 19:06 Surgical History Previous section Social History Smoking Status: Never smoker EXAM Physical Exam Const Vital Signs: 08/20/23 19:09 08/20/23 21:53 Temperature 96.2 F L Temperature Source Temporal Pulse Rate 98 82 Respiratory Rate 18 15 Blood Pressure 118/86 H 139/76 H Blood Pressure Mean 96 97 Pulse Ox 100 96 Oxygen Delivery Method Room Air Room Air Positive well nourished and well developed General Appearance ED: well developed HEENT Reports normocephalic, head/scalp atraumatic and moist mucous membranes Eyes PERRL and EOMs intact bilaterally Neck no lymphadenopathy, supple and no JVD Resp normal respiratory effort and clear to auscultation bilaterally Cardio regular rate, regular rhythm and no murmurs GI non-tender Inspection: Negative for abdominal distention Auscultation: normoactive bowel sounds Palpation: soft, tender RUQ and guarding; Negative for rebound tenderness present Back/Spine no CVA tenderness and normal ROM Extremity normal to inspection General Extremety ED: Negative for edema General Extremity: Negative for edema Neuro oriented x3 and CN's II-XII intact bilaterally Sensorium / Orientation: alert Motor Exam: strength 5/5 throughout Psych mental status grossly normal Mood & Affect: Negative for depressed or tearful Skin no rashes or lesions noted and no wounds MDM MDM MDM Narrative Medical decision making narrative: I performed a bedside ultrasound which demonstrates some cholelithiasis. White count 7.9 with no left shift. Liver enzymes showed an alkaline phosphatase of 128 otherwise normal. Creatinine 0.53. Anion gap of 2 CO2 of 28 lipase 37 test is negative urinalysis negative. Formal gallbladder ultrasound shows biliary sludge and gallstones. No pericholecystic fluid. No CBD dilatation. Patient received morphine for pain which improved it. I gave her some additional Toradol. I did speak with Dr. Flanagan from general surgery who at this point would recommend outpatient follow-up to discuss cholecystectomy. She was placed on a low-fat diet given pain and nausea medications and given return instructions in [place]. History & Record Review Discussion w/independent historian: Patient Lab Data Attestation: I reviewed the patient's lab results. Labs: Laboratory Results - last 24 hr 08/20/23 08/20/23 19:46 20:40 WBC 7.9 RBC 4.42 Hgb 12.5 Hct 37.9 MCV 85.7 MCH 28.3 MCHC 33.0 RDW Std Deviation 39.8 RDW Coeff of Wilfrid 12.7 Plt Count 350 MPV 9.9 Immature Gran % (Auto) 0.100 Neut % (Auto) 59.8 Lymph % (Auto) 27.8 [place] % (Auto) 6.6 Eos % (Auto) 4.7 Baso % (Auto) 1.0 Absolute Neuts (auto) 4.7 Absolute Lymphs (auto) 2.19 Nucleated RBC % 0 Sodium 138 Potassium 3.7 Chloride 108 H Carbon Dioxide 28.0 Anion Gap 2 L BUN 11 Creatinine 0.53 L Est GFR (MDRD) Af Amer 172 Est GFR (MDRD) Non-Af 142 BUN/Creatinine Ratio 20.7 H Glucose 105 Calcium 9.8 Total Bilirubin 0.30 Direct Bilirubin 0.08 AST 17 ALT 22 Alkaline Phosphatase 128 H Total Protein 7.8 Albumin 3.8 Globulin 4.0 Lipase 37 Serum , Qual NEGATIVE Urine Color Yellow Urine Clarity Clear Urine pH 6.5 Ur Specific [place] 1.020 Urine Protein Negative Urine Glucose (UA) Normal Urine Ketones Negative Urine Occult Blood 10 H Urine Nitrite Negative Urine Bilirubin Negative Urine Urobilinogen Normal Ur Leukocyte Esterase Negative Urine RBC 0-5 SEEN Urine WBC 0-5 SEEN Ur Squamous Epith Cells 0-5 SEEN Urine Bacteria 0 SEEN Urine Mucus 0 SEEN Radiography Diagnostic Testing: Clinical Impression(s) from Imaging Studies Gallbladder Ultrasound 08/20/23 19:31 IMPRESSION: Multiple gallstones with no signs of acute cholecystitis. Remainder of the right upper quadrant ultrasound unremarkable. Electronically Signed: Cristy Moon MD at 21:09 EST Reading Location ID and State: [address] [place] [address] , Service support , Management Discussion w/another healthcare provider: Radial Router Operator (Surgery) Discharge Plan Triage Chief Complaint: Abd Pain ED Provider: Michi Mott Dx/Rx/DC Orders Clinical Impression: Gallstones, Biliary colic Instructions: Gallstones Dc, ED Gallstones with Biliary Colic Prescriptions: New hydrocodone-acetaminophen [hydrocodone-acetaminophen] 5-325 mg tablet 1 tab PO Q6H PRN PRN (Reason: Pain) 3 Days Qty: 12 0RF ondansetron [ondansetron] 4 mg tablet,disintegrating 4 mg PO Q6H PRN PRN (Reason: Nausea) Qty: 10 0RF Primary Care Provider: Care Physician,No Primary Referrals: Fred Flanagan MD [Med Staff - Active Staff] - As soon as possible (for surgical evaluation) Care Physician,No Primary [Primary Care Provider] - Activity Restrictions/Additional Instructions: As discussed it is very likely that your pain will be coming back at some point. It is very important that you follow-up with surgery to discuss having your gallbladder removed. I have wrote for you to have some pain and nausea medications. If you are having uncontrolled symptoms at home please return to emergency. Print Language: [place] Disposition Disposition: Home, Self Care What to do if you have Problems For any increased pain, shortness of breath, bleeding, nausea or vomiting, chestpain, or any unexpected problems, contact your Primary Care Provider. Call [facility] ([phone]) or report to the closest Emergency Room. Call 911 if necessary. 08/20/23 [id number] <Electronically signed by Michi Mott DO> Cosigner Signature (if applicable): CC: No Primary Care Physician ~ Signed [facility] Work Phone: Evaluation note Note Date & Type Note Facility Evaluation note No assessment information availa ble [facility] Work Phone: Hospital Discharge instructions Note Date & Type Note Facility Hospital Discharge instructions Additional Instructions As discussed it is very likely that your pain will be coming back at some point. It is very important that you follow-up with surgery to discuss having your gallbladder removed. I have wrote for you to have some pain and nausea medications. If you are having uncontrolled symptoms at home please return to emergency. [facility] Work Phone: Chief Complaint and Reason for Visit Chief Complaint abd pain Advance Directives No Advanced Directives Records Found Advance Directive Response Recorded Date/ Time Living Will No August 20 7:16pm Power of [employer] No August 20, 2023 7:16pm Summary Purpose Family History No Family History Records Found Additional Source Comments Care Teams (unrecognized sec tion and content) Team Status: Active Member Role Status Dates No Primary Care Physician Primary Care Provider Active Team Status: Inactive Member Role Status Dates Dr. Michi Mott , DO Emergency Provider Active No Primary Care Physician Primary Care Provider Active Goals (unrecognized section and content) Goals may be documented in a n alternate section INFORMATION SOURCE (unrecogn ized section and content) DATE CREATED AUTHOR 08/26/2023 [facility] FOR RECORDS PERTAINING TO PATIENTS WHO ARE OR HAVE BEEN ENROLLED IN A CHEMICAL DEPENDENCY/SUBSTANCEABUSE PROGRAM, SOME INFORMATION MAY BE OMITTED. This clinical summary was aggregated from multiple sources. Caution should be exercised in using it in the provision of clinical care. This summary normalizes information from multiple sources, and as a consequence, information in this document may materially change the coding, format and clinical context of patient data. In addition, data may be omitted in some cases. CLINICAL DECISIONS SHOULD BE BASED ON THE PRIMARY CLINICAL RECORDS. [facility] [employer] [facility]. provides no warranty or guarantee of the accuracy or completeness of information in this document.
[2025-01-31] MEDS: Ketorolac 30 MG/ML Syringe IV (05:15)
[2025-01-31] MEDS: Lidocaine 2% Viscous15 ML UDC 15 ML PO (05:16)
[2025-01-31] MEDS: Pantoprazole Sodium 40 MG in 0.9% Normal Saline (100mL MB+) 100 ML 300 MG IV (05:25)
[2025-01-31 05:42] VITALS: BP 116/73; PULSE 87; RESP 16; O2SAT 98
--- NOTE | 2025-01-31 05:55 | EDS_ITS ---
HPI History of Present Illness Chief Complaint: General Illness Informant: patient Narrative Narrative: Patient is a 34-year-old female who states in the last 1 to 2 days she has had generalized abdominal discomfort bouts of nausea vomiting diarrhea. She denies any known sick contact. She denies any recent antibiotic use or travel outside the country. She states that she has had a previous cholecystectomy and even though her gallbladder has been removed her symptoms remind her of when her gallbladder was malfunctioning. She states she is not able to keep food or fluid down and secondary to this presents for evaluation [facility] Medical History (Updated 01/31/25 @ 05:[address] Solomon Guardado, DO) Gallstone Home Medications ?Medication ?Instructions ?Recorded ?Last Taken ?Type hydrocodone-acetaminophen 5-325mg 1 tab PO Q6H PRN PRN Pain 3 days 08/20/23 Unknown Rx 5mg-325mg #12 TABLETS ondansetron 4 mg disintegrating 4 mg PO Q6H PRN PRN Na usea #10 tabs 08/20/23 Unknown Rx tablet ondansetron 4 mg disintegrating 4 mg PO TID PRN nausea and 01/31/25 Unknown Rx tablet vomiting 7 days #21 tabs oxycodone-acetaminophen 5 mg-325 1 tab PO Q6H PRN pain 3 days #12 01/31/25 Unknown Rx mg tablet (Percocet) tabs Allergy/AdvReac Type Severity Reaction Status Date / Time No Known Allergies Allergy Verified 01/31/25 03:43 Family History no significant family his Surgical History (Updated 01/31/25 @ 03:49 by Tre Hamilton) Hx of cholecystectomy Previous section Social History Smoking Status: Current some day smoker tobacco type: e-cigarettes ROS ROS ED Constitutional Constitutional ED: Denies chills or fever(s) Eyes Eyes: Denies change in vision ENT ENT ED: Denies sore throat Cardiovascular Cardiovascular: Denies chest pain Respiratory/Chest Respiratory/Chest: Denies cough or dyspnea Gastrointestinal Gastrointestinal: Reports abdominal pain, diarrhea, nausea and vomiting Genitourinary Genitourinary ED: Denies dysuria Musculoskeletal Musculoskeletal: Reports myalgias Integumentary Denies rash Neurologic Neurologic: Denies headache(s) Hematologic/Lymphatic Hematologic/Lymphatic: Denies easy bleeding or easy bruising EXAM Physical Exam Const Vital Signs: 01/31/25 03:43 01/31/25 03:43 01/31/25 05:42 Temperature 98.5 F Temperature Source Oral Pulse Rate 94 87 Respiratory Rate 18 16 Respiratory Effort Normal Respiratory Pattern Normal Blood Pressure 126/74 H 116/73 Blood Pressure Mean 91 87 Pulse Ox 98 98 Oxygen Delivery Method Room Air Room Air Positive well nourished and well developed General Appearance ED: well developed; Negative for pallor HEENT Reports dry mucous membranes HEENT Narrative: Membranes are slightly dry and tacky No tongue or lip swelling no oral lesions no airway edema or compromise No secondary findings in the posterior pharynx Mouth ED: Yes dry mucous membranes Mouth: dry mucous membranes Eyes PERRL and EOMs intact bilaterally General Eye ED: Negative for scleral icterus Neck supple Resp normal respiratory effort and clear to auscultation bilaterally Cardio regular rate and regular rhythm Rate: other Other Details: Heart is regular rate and rhythm without murmurs rubs or gallop Radial and carotid pulses are equal and symmetric GI non-distended and no masses GI Narrative: Abdomen is soft and nondistended with hyperactive bowel sounds. There is mild diffuse pain with palpation without voluntary guarding or rigidity or pulsatile mass. No peritoneal signs Auscultation: hyperactive bowel sounds Palpation: soft Extremity normal to inspection Neuro oriented x3, CN's II-XII intact bilaterally and no sensory deficits noted Sensorium / Orientation: alert Motor Exam: strength 5/5 throughout Psych mental status grossly normal Skin no rashes or lesions noted and No skin turgor normal Skin Narrative: Skin turgor slightly increased General Skin Exam: Negative for jaundice or pallor MDM MDM MDM Narrative Medical decision making narrative: Patient presented to the ER with stable vitals her history and exam is consistent with mild dehydration from most likely a viral source such as norov irus versus rotavirus. However as patient could have a potential atypical presentation for pancreatitis or complication or pyelonephritis/UTI basic labs were obtained. I did elect to perform a CT scan as well to ensure there is no intestinal pathology such as colitis/diverticulitis. Laboratory studies revealed no clinically significant findings. Lipase is negative going against acute pancreatitis and there is no clinically significant leukocytosis or left shift. The patient's urine sample did show bacteria but is contaminated and she does not have any dysuria going against UTI as the cause. After receiving medications in the ER as well as hydration she had improvement of her symptoms. As her abdomen remains soft and nonsurgical and vital stable and she has had improvement of symptoms and there is no signs of acute kidney injury or clinically significant electrolyte abnormality I do not feel the need for further workup or treatment and she is otherwise safe for discharge. History & Record Review Discussion w/independent historian: Patient Lab Data Attestation: I reviewed the patient's lab results. Labs: Laboratory Results - last 24 hr 01/31/25 01/31/25 03:56 04:18 WBC 11.4 H RBC 4.63 Hgb 13.1 Hct 38.7 MCV 83.6 MCH 28.3 MCHC 33.9 RDW Std Deviation 39.6 RDW Coeff of Wilfrid 13.0 Plt Count 341 MPV 9.5 Immature Gran % (Auto) 0.400 Neut % (Auto) 69.4 Lymph % (Auto) 23.0 [place] % (Auto) 5.2 Eos % (Auto) 1.4 Baso % (Auto) 0.6 Absolute Neuts (auto) 7.9 H Absolute Lymphs (auto) 2.62 Nucleated RBC % 0 Sodium 134 Potassium 4.1 Chloride 102 Carbon Dioxide 19.9 L Anion Gap 12 BUN 7 Creatinine 0.54 L Estim Creat Clear Calc 151.54 Est GFR (MDRD) Non-Af 125 BUN/Creatinine Ratio 13.3 Glucose 110 H Calcium 9.4 Total Bilirubin 0.87 Direct Bilirubin 0.28 AST 23 ALT 16 Alkaline Phosphatase 97 Total Protein 8.2 Albumin 4.6 Globulin 3.6 Lipase 25 Serum , Qual NEGATIVE Urine Color Yellow Urine Clarity Clear Urine pH 7.0 Ur Specific [place] 1.015 Urine Protein 30 H Urine Glucose (UA) Normal Urine Ketones Negative Urine Occult Blood 25 H Urine Nitrite Negative Urine Bilirubin Negative Urine Urobilinogen Normal Ur Leukocyte Esterase 25 H Urine RBC 0-5 SEEN Urine WBC 0-5 SEEN Ur Squamous Epith Cells 5-10 SEEN Ur Transition Epith Cell 0-5 SEEN Amorphous Sediment 1+ Urine Bacteria 3+ Urine Mucus 1+ Radiography Diagnostic Testing: Clinical Impression(s) from Imaging Studies Abdomen/Pelvis CT 01/31/25 04:29 IMPRESSION: Urinary bladder mural thickening. Advise clinical and laboratory correlation to exclude the possibility of cystitis. Otherwise, no acute pelvi-abdominal abnormalities, collections or free air. Reading Location: [place] [address] Discharge Plan Triage Chief Complaint: General Illness ED Provider: Solomon Guardado Dx/Rx/DC Orders Clinical Impression: Nausea & vomiting, Dehydration, mild, Nonspecific abdominal pain Instructions: ED Dehydration (Adult), ED Gastroenteritis, Viral (Adult) Prescriptions: New ondansetron 4 mg tablet,disintegrating 4 mg PO TID PRN (Reason: nausea and vomiting) 7 Days Qty: 21 0RF oxycodone-acetaminophen [Percocet] 5-325 mg tablet 1 tab PO Q6H PRN (Reason: pain) 3 Days Qty: 12 0RF No Action hydrocodone-acetaminophen [hydrocodone-acetaminophen] 5-325 mg tablet 1 tab PO Q6H PRN PRN (Reason: Pain) 3 Days Qty: 12 0RF ondansetron [ondansetron] 4 mg tablet,disintegrating 4 mg PO Q6H PRN PRN (Reason: Nausea) Qty: 10 0RF Stand Alone Forms: ED Work / School Excuse Primary Care Provider: Care Physician,No Primary Referrals: Care Physician,No Primary [Primary Care Provider] - Activity Restrictions/Additional Instructions: Your workup displayed no clinically significant findings indicating your symptoms are from a viral stomach infection. This will last anywhere from 24 hours to 7 days with the average being 3 days. Please take the prescribed medication as directed to help control your symptoms. Return to the ER should you have any further concerns Print Language: Korean Disposition Disposition: Home, Self Care Discharge Date/Time: 01/31/25 06:09
[2025-01-31 06:08] VITALS: BP 116/73; PULSE 89; RESP 16; TEMP 36.7; O2SAT 99
== END 2025-01-31 06:09 | disposition home or self-care (01) ==
PROVIDERS: Emergency Provider Emergency Medicine; Visit Provider Emergency Medicine
DX: R10.84 Generalized abdominal pain (principal); R11.2 Nausea with vomiting, unspecified; R19.7 Diarrhea, unspecified; E86.0 Dehydration; F17.290 Nicotine dependence, other tobacco product, uncomplicated; Z90.49 Acquired absence of other specified parts of digestive tract
CPT/HCPCS: 74177; 80048; 80076; 81001; 83690; 84703; 85025; 96365; 96375; 99283; Q9967; A4216; J2405